=== PATIENT | female | born 1965 ===

== ENCOUNTER 2017-09-01 09:14 | Day surgery (SDC) | payer BC ==
[~2017-09-01 09:14] MED LIST: AMIT50 PO; AMOX500 PO; Ativan1 MG PO; BENTYL20 MG PO; BENZ100A PO; CODGUAEL PO; CYCL10 PO; Catapres0.1 MG PO; Catapres0.2 MG PO; FENT100TP TOP; FENT25TP TOP; FENT75TP TOP; HYDACE5 PO; HYDMOR2 PO; IBUP600; MORPHINE SULFA100 MG PO; OXYC10ER PO; OXYC30 PO; OXYC80ER PO; POTCHL20ER PO; PROM25 PO; PROM25S PR; Percocet 10-321 EACH PO; Percocet 5-3251 EACH PO; Prednisone20 MG PO; RXHYDMOR2 PO; Roxicodone5 MG PO; Seroquel Xr50 MG PO; Zofran Odt4 MG SL; Zofran8 MG PO
== END 2017-09-01 12:35 | disposition home or self-care (01) ==
LOC: RAD 09:14
PROVIDERS: Radiology Diagnostic Radiology
PROC: BR20YZZ Computerized Tomography (CT Scan) of Cervical Spine using Other Contrast (ICD-10-PCS; principal; 2017-09-01 11:00)
PROC: BR29YZZ Computerized Tomography (CT Scan) of Lumbar Spine using Other Contrast (ICD-10-PCS; principal; 2017-09-01 11:00)
DX: M50.30 Other cervical disc degeneration, unspecified cervical region (principal); M51.16 Intervertebral disc disorders with radiculopathy, lumbar region; M48.061 Spinal stenosis, lumbar region without neurogenic claudication
CPT/HCPCS: 62305; 72126; 72132; Q9967

== ENCOUNTER → 2018-08-10 | Outpatient (CLI) | payer BC ==
[~2018-08-10] MED LIST changes: +MORP60ER PO
[2018-08-10 11:32] LABS: BASOPHILS ABSOLUTE AUTO 0.07 K/mm3 (0.00-0.23); BASOPHILS PERCENT AUTO 1 % (0-2); EOSINOPHILS ABSOLUTE AUTO 0.31 K/mm3 (0.00-0.68); EOSINOPHILS PERCENT AUTO 2 % (0-6); Hematocrit 50.6 % (33.0-51.0); IMMATURE GRAN ABSOLUTE AUTO 0.04 K/mm3 (0.00-0.10); IMMATURE GRAN PERCENT AUTO 0 % (0-1); LYMPHOCYTES ABSOLUTE AUTO 4.14 K/mm3 (0.84-5.20); LYMPHOCYTES PERCENT AUTO 32 % (21-46); MONOCYTES PERCENT AUTO 9 % (4-13); Mean Corpuscular HGB 29.8 pg (26.0-34.0); Mean Corpuscular HGB Conc 33.6 g/dL (31.5-36.5); Mean Corpuscular Volume 89 fL (80-100); Mean Platelet Volume 12.2 fL (9.1-12.4); NEUTROPHILS ABSOLUTE AUTO 7.33 K/mm3 (1.96-9.15); NEUTROPHILS PERCENT AUTO 56 % (41-73); Platelet Count 355 K/mm3 (150-400); RDW Coefficient Variation 14.3 % (11.7-14.2); RDW Standard Deviation 45.9 fL (35.1-46.3); White Blood Cell Count 12.99 K/mm3 (4.00-11.30)
[2018-08-10 11:43] LABS: Albumin, Blood 4.4 g/dL (3.4-5.0); Albumin/Globulin Ratio 0.9 (0.8-1.8); Bilirubin, Total 0.4 mg/dL (0.1-1.0); Bun/Creatinine Ratio 15.1 (12.0-20.0); Calcium, Blood 8.7 mg/dL (8.5-10.1); Creatinine, Blood 1.06 mg/dL (0.40-1.00); Globulin, Blood 4.7 g/dL (2.2-4.0); Potassium, Blood 3.8 mmol/L (3.5-5.5); Total Protein, Blood 9.1 g/dL (6.4-8.2)
== END | disposition home or self-care (01) ==
LOC: LAB EV 11:27 → LAB SHORT 11:27
PROVIDERS: Emergency Medicine
DX: T78.40XA Allergy, unspecified, initial encounter (principal)
CPT/HCPCS: 80053; 85025

== ENCOUNTER 2021-05-23 13:32 | Emergency (ER) | payer OTHER ==
[~2021-05-23] VITALS: Ht 167.6 cm; Wt 70.3 kg
[2021-05-23] MEDS ORDERED: LOMAIRA8 MG (13:52)
[2021-05-23] MEDS ORDERED: AMOX250 PO (13:53)
[2021-05-23] MEDS ORDERED: ESZO2 PO (13:53)
[2021-05-23] MEDS ORDERED: CYCL10 PO (16:04)
[2021-05-23] MEDS ORDERED: Norco 5-325 Ta1 EACH PO (16:04)
== END 2021-05-23 16:09 | disposition home or self-care (01) ==
LOC: ER 13:32
DX: M54.2 Cervicalgia (principal); V49.9XXA Car occupant (driver) (passenger) injured in unspecified traffic accident, initial encounter; Z79.899 Other long term (current) drug therapy; Z79.891 Long term (current) use of opiate analgesic
CPT/HCPCS: 72125; 99284-25; A9270